=== PATIENT | male | born 1940 | race Caucasian/White ===

== ENCOUNTER 2018-11-21 15:46 | Emergency (ER) | payer MEDICARE, OTHER, SELFPAY ==
[2018-11-21 15:50] VITALS: BP 133/65; PULSE 71; RESP 15; TEMP 36.7; O2SAT 98; BMI 22.8
[2018-11-21 18:22] VITALS: BP 145/63; PULSE 63; RESP 19; O2SAT 100
--- NOTE | 2018-11-21 18:42 | DI.CT.S_ITS ---
PROCEDURE: CT HEAD/BRAIN WO CON INDICATIONS: Right arm weakness started today TECHNIQUE: Noncontrast 4.5 mm thick angled axial sections acquired from the foramen magnum to the vertex, with coronal and sagittal reformats. For radiation dose reduction, the following was used: automated exposure control, adjustment of mA and/or kV according to patient size. COMPARISON: None. FINDINGS: Image quality: Excellent. CSF spaces: Basal cisterns are patent. No extra-axial fluid collections. The ventricles are symmetric in size and shape. Brain: No intracranial bleeds or masses. There is cerebral volume loss for age, with resultant ventricular and sulcal prominence. There are periventricular and deep white matter chronic small vessel ischemic changes. There is intracranial internal carotid artery atherosclerosis. Skull and face: Calvarium and visualized facial bones appear intact, without suspicious lesions. Sinuses: Visualized sinuses and mastoids are clear. IMPRESSION: 1. No acute process. 2. Volume loss and small vessel ischemic disease. Dictated by: Diamond De Anda M.D. on 11/21/2018 at 19:35 Approved by: Diamond De Anda M.D. on 11/21/2018 at 19:36
[2018-11-21 19:08] LABS: Add Manual Diff / Slide Review NO; Basophils Absolute Auto 0 /uL (0-100); Basophils Percent Auto 0.7 % (0-2); Eosinophils Absolute Auto 100 /uL (0-450); Eosinophils Percent Auto 2.7 % (2-4); Hematocrit 39.8 % (41-53); Hemoglobin 13.7 g/dL (13.5-17.5); Lymphocytes Absolute Auto 1600 /uL (1100-4500); Lymphocytes Percent Auto 30.9 % (25-40); Mean Corpuscular HGB Conc 34.3 % (30-36); Mean Corpuscular Hemoglobin 32.5 PG (26-34); Monocytes Absolute Auto 500 /uL (0-900); Monocytes Percent Auto 9.4 % (3-14); Neutrophils Absolute Auto 2800 /uL (1500-7000); Neutrophils Percent Auto 56.3 % (50-75); Platelet Count 137 X10^3/uL (150-400)
--- NOTE | 2018-11-21 19:21 | PC.NURSE ---
pt developed a right wrist palsy this am. reports that he had no other neuro deficits. right wrist is completely flaccid. good pulses. reports his 4 fingers don't work.
[2018-11-21 19:22] LABS: Blood Urea Nitrogen 15 mg/dL (9-20); Calcium 10.5 mg/dL (8.4-10.2); Carbon Dioxide 30 mmol/L (22-32); Chloride 104 mmol/L (98-107); Estimated Glomerular Filt Rate > 60.0 mL/min (>60); Glucose 92 mg/dL (80-110); HEMOLYSIS < 15 (0-50); Potassium 3.9 mmol/L (3.4-5.1); Sodium 139 mmol/L (137-145)
--- NOTE | 2018-11-21 19:25 | DI.CT.S_ITS ---
PROCEDURE: CT ANGIO HEAD AND NECK INDICATIONS: stroke symptoms, RUE weakness TECHNIQUE: Pre-contrast 4.5 mm thick sections acquired from the foramen magnum to the vertex. After the administration of intravenous contrast, 1 mm thick sections acquired from the aortic arch through the [place]. Post-contrast 4.5 mm thick sections then re-acquired from the foramen magnum to the vertex. 3-dimensional haerolr-wlbfrpmfc-zjizfzuein (MIP) and/or volume rendering reformats were acquired of the central intracranial vasculature and neck separately. COMPARISON: [facility], CT, CT HEAD/BRAIN WO CON, 11/21/2018, 19:24. [facility], [place], CAROTID ARTERY DOPPLER BILAT, 05/03/2016, 15:28. FINDINGS: Image quality: Degraded by dental artifact. BRAIN: CSF spaces: Ventricles are normal in size and shape. Basal cisterns are patent. No extra-axial fluid collections. Brain: No midline shift. No intracranial bleeds or masses. Lopez-white matter interface appears intact. Skull and face: Calvarium and facial bones appear intact, without suspicious lesions. Orbits appear normal. Sinuses: Sinuses and mastoids are clear. HEAD CT ANGIOGRAPHY: Anterior circulation: Intracranial internal carotid arteries are normal in size and flow. The flow within the paired anterior cerebral arteries is normal and symmetric. The flow within the middle cerebral arteries is normal and symmetric. The anterior communicating artery is seen. No aneurysms are seen. Posterior circulation: Visualized portions of the vertebral arteries demonstrate normal caliber, and join to form a normal appearing basilar artery. Flow within the posterior cerebral arteries is normal and symmetric. No aneurysms are seen. NECK CT ANGIOGRAPHY: Carotid system: The great vessels demonstrate a conventional anatomy as they arise from the aortic arch. The origins of the common carotid arteries appear patent. The common carotid arteries demonstrate normal caliber and courses. The bifurcation regions are both widely patent. Mild femoral to 10% origin stenosis of the right internal carotid artery. Mild pleural thickening present origin stenosis of the left internal carotid artery. The internal carotid arteries demonstrate otherwise normal calibers and courses. Posterior circulation: Moderate right and high-grade left vertebral artery origin stenoses are present. The more superior extracranial portions of both vertebral arteries also demonstrate normal courses and calibers. They join to form a normal appearing basilar artery. Soft tissues: Visualized neck soft tissues demonstrate no suspicious abnormalities. Bones: No suspicious bony lesions. Visualized cervical spine appears normally aligned. IMPRESSION: 1. No acute process involving the arterial tree of the head and neck. 2. Left greater than right vertebral artery origin stenoses. 3. Mild bilateral internal carotid artery origin stenoses. Any quantitative measurements of stenosis were performed using NASCET criteria. Dictated by: Diamond De Anda M.D. on 11/21/2018 at 20:04 Approved by: Diamond De Anda M.D. on 11/21/2018 at 20:09
[2018-11-21 19:35] VITALS: BP 148/63; PULSE 65; RESP 14; O2SAT 100
[2018-11-21 20:07] VITALS: BP 145/63; PULSE 84; RESP 14
--- NOTE | 2018-11-21 20:24 | ED_ITS ---
HPI - Neuro Symptoms/Deficit General Chief Complaint: Neuro Symptoms/Deficit Stated Complaint: POSSIBLE STROKE NO MOBILITY TO RT ARM Time Seen by Provider: 11/21/18 18:30 Source: patient and family Mode of arrival: ambulatory Limitations: no limitations History of Present Illness HPI Narrative: 78-year-old male former smoker with hypertension, hyperlipidemia and early stage dementia presents with his from [facility] 24 hour care. She states that today she noticed that he had no use of his right hand that appears floppy. Has no other stroke-like symptoms such as blurred vision, trouble with speech or trouble ambulating. She states he was in his normal state of health until this morning. She noticed there is a problem when she had asked him to put some shoes on and he came out wearing sandals despite the fact that it was raining. There is no reported injury or pain. It is unclear if he maybe slept on it awkwardly. Onset (ago): hour(s) Timing confirmed by: spouse Location: right arm History of same: No Severity: mild Quality: weak and numb Relieving factors: none Exacerbating factors: none Context: other On Anticoagulants: No Associated symptoms: denies other symptoms Treatments Prior to Arrival: none Related Data Home Medications Medication Instructions Recorded Confirmed aspirin 81 mg PO BID #0 02/09/11 01/13/18 rosuvastatin [Crestor] 40 mg PO HS #0 02/09/11 01/13/18 cholecalciferol (vitamin D3) 1,000 unit PO QDAY #0 02/26/12 01/13/18 [Vitamin D3] polyethylene glycol 3350 [Miralax] 17 gm PO QDAYP PRN #0 12/21/16 01/13/18 Previous Rx's Medication Instructions Recorded gabapentin [Neurontin] 600 mg PO BID #180 tab 09/17/17 galantamine [Razadyne ER] 16 mg PO HS #90 cap 09/17/17 memantine 10 mg PO BID #180 tab 09/17/17 Allergies Allergy/AdvReac Type Severity Reaction Status Date / Time Penicillins [PENICILLINS] Allergy Severe SWELLING Unverified 10/09/17 11:57 IN THROAT, AXILLA, GROIN Review of Systems Constitutional Denies chills, Denies fever(s), Denies lethargy and Denies weakness Eyes Denies change in vision, Denies eye discharge, Denies irritation and Denies loss of vision ENT Ears, Nose, Mouth, and Throat: Denies change in voice, Denies neck pain and Denies sore throat Cardiovascular Denies chest pain, Denies irregular heart rhythm, Denies lightheadedness, Denies palpitations, Denies dyspnea, Denies dyspnea on exertion and Denies orthopnea Respiratory Denies cough, Denies dyspnea, Denies dyspnea on exertion and Denies wheezing Gastrointestinal Gastrointestinal: Denies abdominal pain, Denies change in bowel habits, Denies diarrhea, Denies nausea and Denies vomiting Genitourinary Denies hematuria, Denies flank pain, Denies urinary incontinence and Denies urinary urgency Musculoskeletal Denies neck pain Integumentary/Breasts Denies pruritus, Denies erythema, Denies rash and Denies wounds Neurologic Denies confusion, Reports focal weakness, Denies loss of vision and Denies weakness Psychiatric Denies anxiety, Denies confusion, Denies depression, Denies homicidal ideation and Denies suicidal ideation Endocrine Denies palpitations Hematologic/Lymphatic Denies easy bruising Allergic/Immunologic Denies wheezing [facility] Social History Smoking Status: Never smoker Social History Smoking Status: Never smoker Exam Narrative Exam Narrative: GENERAL: 78-year-old male appears younger than stated age, in no obvious distress, pleasantly confused and at baseline per HEAD: Atraumatic. Normocephalic. No temporal or scalp tenderness. EYES: Pupils equal round and reactive. Extraocular motions intact. No scleral icterus. No injection or drainage. ENT: Nose without bleeding, purulent drainage or septal hematoma. Throat without erythema, tonsillar hypertrophy or exudate. Uvula midline. Airway patent. NECK: Trachea midline. No JVD or lymphadenopathy. Supple, nontender, no meningeal signs. CARDIOVASCULAR: Regular rate and rhythm without murmurs, gallops, or rubs. RESPIRATORY: Clear to auscultation. Breath sounds equal bilaterally. No wheezes, rales, or rhonchi. GASTROINTESTINAL: Abdomen soft, non-tender, nondistended. No hepato- splenomegaly, or palpable masses. No guarding. EXTREMITIES: Obvious right upper extremity wrist drop. Patient complains of numbness on the dorsum of his right hand, particularly on dorsum of thumb and 1st web space. He is able to flex fingers and overlock sleeve setter but spreading fingers wide is difficult. Full strength at shoulder and elbow No clubbing, cyanosis, or edema. No joint tenderness, effusion, or edema noted. BACK: Nontender without deformity or crepitance. No flank tenderness. NEURO: AOx3. SKIN: No rash or erythema. Initial Vital Signs Initial Vital Signs: Vital Signs Temperature 98.1 F 11/21/18 15:50 Pulse Rate 71 11/21/18 15:50 Respiratory Rate 15 11/21/18 15:50 Blood Pressure 133/65 11/21/18 15:50 Pulse Oximetry 98 11/21/18 15:50 Procedures Orthopedic Splinting/Casting Injury #1: Side: right Upper Extremity Injury Location: wrist Upper Extremity Immobilizer: wrist splint Post splinting neuro exam: intact Post splinting vascular exam: intact Placed by: Nursing Scores NIH Stroke Scale Level of Conciousness: Alert, keenly responsive Ask month/age: Answers both questions correctly. Open/close eyes, close hand: Performs both tasks correctly Best gaze horizontal: Normal Visual andres: No visual loss Facial palsy: Normal symetrical movement Left arm drift: No drift for full 10 sec Right arm drift: No drift for full 10 sec Left leg drift: No drift for full 10 sec Right leg drift: No drift for full 10 sec Limb ataxia: Absent Sensory on face/arms/legs: Mild to moderate sensory loss, can tell touch Best language: No aphasia, normal Dysarthria: Normal Extinction or inattention: No abnormality Total NIH Stroke scale score: 1 Course Orders Ordered: ED Orders 11/21/18 18:42 CT head/brain wo con Stat EKG-12 Lead Stat 11/21/18 19:01 Basic Metabolic Panel Stat Complete Blood Count AUTO DIFF Stat 11/21/18 19:25 CT angio head and neck Stat Consultations Consultation #1: call to customer retention specialist orthopedics to discuss findings, he agrees that this sounds like a focal extremity problem and recommends splinting and follow up Consultation #2: call to [place] [facility]. After discussion of case, imaging, and exam they agree that this is likely an isolated palsy and that follow up with neuro in 4 weeks is appropriate Vital Signs - 8 hr 11/21/18 18:22 11/21/18 19:35 11/21/18 20:07 Pulse Rate 63 65 84 Respiratory Rate 19 14 14 Blood Pressure [Right Arm] 145/63 H 148/63 H 145/63 H Pulse Oximetry 100 100 11/21/18 20:30 Pulse Rate 62 Respiratory Rate 15 Blood Pressure [Right Arm] 131/56 L Pulse Oximetry 98 MDM - Neuro Symptoms/Deficit Lab Data Result diagrams: 11/21/18 19:01 11/21/18 19:01 Lab Results 11/21/18 11/21/18 Range/Units 19:01 19:01 WBC 5.0 (4.5-11.0) X10^3/uL RBC 4.20 L (4.5-5.9) X10^6/uL Hgb 13.7 (13.5-17.5) g/dL Hct 39.8 L (41-53) % MCV 95.0 (80-100) fL MCH 32.5 (26-34) PG MCHC 34.3 (30-36) % RDW 14.0 (11.6-14.8) % Plt Count 137 L (150-400) X10^3/uL Neut % (Auto) 56.3 (50-75) % Lymph % (Auto) 30.9 (25-40) % [place] % (Auto) 9.4 (3-14) % Eos % (Auto) 2.7 (2-4) % Baso % (Auto) 0.7 (0-2) % Neut # (Auto) 2800 (7296-0898) /uL Lymph # (Auto) 1600 (7895-3510) /uL [place] # (Auto) 500 (0-900) /uL Eos # (Auto) 100 (0-450) /uL Baso # (Auto) 0 (0-100) /uL Sodium 139 (137-145) mmol/L Potassium 3.9 (3.4-5.1) mmol/L Chloride 104 (98-107) mmol/L Carbon Dioxide 30 (22-32) mmol/L BUN 15 (9-20) mg/dL Creatinine 1.00 (0.66-1.25) mg/dL Estimated GFR > 60.0 (>60) mL/min BUN/Creatinine Ratio 15.0 (6-22) Glucose 92 (80-110) mg/dL Calcium 10.5 H (8.4-10.2) mg/dL Imaging Data CT scan - head: Radiologist's impression: [address] [place] [address] CT Scan Report Signed Patient: Kyle Jones FMR#: [id number] : 8Acct:[id number] Age/Sex: 78 / MDate of Service: 11/21/18 Loc: ED Accession Number: [id number] Procedure: CT angio head and neck Ordering Provider: Ryan Peters D.O. PROCEDURE: CT ANGIO HEAD AND NECK INDICATIONS: stroke symptoms, RUE weakness TECHNIQUE: Pre-contrast 4.5 mm thick sections acquired from the foramen magnum to the vertex. After the administration of intravenous contrast, 1 mm thick sections acquired from the aortic arch through the [place] of [place]. Post-contrast 4.5 mm thick sections then re- acquired from the foramen magnum to the vertex. 3-dimensional oabhfhl-hsmzzoyac-ccwhuysgrx (MIP) and/or volume rendering reformats were acquired of the central intracranial vasculature and neck separately. COMPARISON: [facility], CT, CT HEAD/BRAIN WO CON, 11/21/2018, 19:24. [facility], [place], CAROTID ARTERY DOPPLER BILAT, 05/03/2016, 15:28. FINDINGS: Image quality: Degraded by dental artifact. BRAIN: CSF spaces: Ventricles are normal in size and shape. Basal cisterns are patent. No extra-axial fluid collections. Brain: No midline shift. No intracranial bleeds or masses. Lopez-white matter interface appears intact. Skull and face: Calvarium and facial bones appear intact, without suspicious lesions. Orbits appear normal. Sinuses: Sinuses and mastoids are clear. HEAD CT ANGIOGRAPHY: Anterior circulation: Intracranial internal carotid arteries are normal in size and flow. The flow within the paired anterior cerebral arteries is normal and symmetric. The flow within the middle cerebral arteries is normal and symmetric. The anterior communicating artery is seen. No aneurysms are seen. Posterior circulation: Visualized portions of the vertebral arteries demonstrate normal caliber, and join to form a normal appearing basilar artery. Flow within the posterior cerebral arteries is normal and symmetric. No aneurysms are seen. NECK CT ANGIOGRAPHY: Carotid system: The great vessels demonstrate a conventional anatomy as they arise from the aortic arch. The origins of the common carotid arteries appear patent. The common carotid arteries demonstrate normal caliber and courses. The bifurcation regions are both widely patent. Mild femoral to 10% origin stenosis of the right internal carotid artery. Mild pleural thickening present origin stenosis of the left internal carotid artery. The internal carotid arteries demonstrate otherwise normal calibers and courses. Posterior circulation: Moderate right and high-grade left vertebral artery alicia gin stenoses are present. The more superior extracranial portions of both vertebral arteries also demonstrate normal courses and calibers. They join to form a normal appearing basilar artery. Soft tissues: Visualized neck soft tissues demonstrate no suspicious abnormalities. Bones: No suspicious bony lesions. Visualized cervical spine appears normally aligned. IMPRESSION: 1. No acute process involving the arterial tree of the head and neck. 2. Left greater than right vertebral artery origin stenoses. 3. Mild bilateral internal carotid artery origin stenoses. Any quantitative measurements of stenosis were performed using NASCET criteria. Dictated by: Diamond De Anda M.D. on 11/21/2018 at 20:04 Approved by: Diamond De Anda M.D. on 11/21/2018 at 20:09 [facility] Narrative Medical decision making narrative: Multiple etiologies for patient's symptoms considered including: [Central problem such as stroke versus postop isolated radial nerve or brachial plexus palsy] Findings and discharge diagnosis discussed with patient/family followed by verbalization of understanding Return precautions discussed with patient/family whom verbalize understanding. Discharge Plan Departure Patient Disposition: Home Clinical Impression: Acute radial nerve palsy Qualifiers: Laterality: right Qualified Code(s): G56.31 - Lesion of radial nerve, right upper limb Discharge Date/Time: 11/21/18 21:00 Interventions: ED Discharge Assessment Last Done: 11/21/18 21:00 Instructions: Peripheral Neuropathy Activity Restrictions/Additional Instructions: *You have been diagnosed with [acute right radial nerve palsy] *What to do: * Continue to take medications as directed *Follow up with your primary care provider in 2-3 days, call for an appointment. Let them know you were seen in the Emergency Department and that we ask that you be seen in follow up *Return to ER if you should have any new, worsening or concerning symptoms Prescriptions: No Action rosuvastatin [Crestor] 40 MG tablet 40 mg PO HS Qty: 0 RF: 0 aspirin 81 MG tablet,delayed release (DR/EC) 81 mg PO BID Qty: 0 RF: 0 cholecalciferol (vitamin D3) [Vitamin D3] 1,000 UNIT tablet 1,000 unit PO QDAY Qty: 0 RF: 0 polyethylene glycol 3350 [Miralax] 119 GM powder 17 gm PO QDAYP PRNQty: 0 RF: 0 gabapentin [Neurontin] 600 MG tablet 600 mg PO BID Qty: 180 RF: 3 memantine 10 MG tablet 10 mg PO BID Qty: 180 RF: 3 galantamine [Razadyne ER] 16 MG capsule,ext rel. pellets 24 hr 16 mg PO HS Qty: 90 RF: 2 Referrals: Olga Mclean MD [Non-Staff] - Chester Tatum MD [Primary Care Provider] - Rahul Garcias MD [Physician] -
[2018-11-21 20:30] VITALS: BP 131/56; PULSE 62; RESP 15; O2SAT 98
== END 2018-11-21 21:00 | disposition home or self-care (01) ==
PROVIDERS: Emergency Provider Emergency Medicine; Family Provider Family Medicine; PCP Family Medicine
DX: G56.31 Lesion of radial nerve, right upper limb (principal); R53.1 Weakness
CPT/HCPCS: 29260; 36591; 70450; 70496; 70498; 80048; 85025; 93005; 93010; 99284; 99285; Q9967

== ENCOUNTER 2018-12-05 19:09 | Emergency (ER) | payer MEDICARE, OTHER, SELFPAY ==
[2018-12-05 19:05] VITALS: BP 166/65; PULSE 98; RESP 11; TEMP 36.7; O2SAT 99
--- NOTE | 2018-12-05 19:10 | PC.NURSE ---
Pt obtunded, responsive to deep painful stimuli done by Dr. Montes at bedside minimal movement and no response to ammonia inhalant. NIH Stroke scale unattainable due to pt medical and mental condition per Dr. Montes.
--- NOTE | 2018-12-05 19:10 | ED.AMS ---
HPI - Altered Mental Status General Chief Complaint: Neuro Symptoms/Deficit Stated Complaint: Altered mental status Time Seen by Provider: 12/05/18 19:10 Source: EMS Mode of arrival: EMS Limitations: altered mental status History of Present Illness HPI narrative: Patient is an 78-year-old male. All of the HPI was provided by EMS. It was reported that last evening the patient received Seroquel for the 1st time. Is reported the patient also has a history of dementia. EMS reports from the patient's that his baseline is that he is able to walk and talk and take care of himself. EMS states that according to his he has been more tired throughout today. Apparently a spent most of the time in bed. EMS states that the walked into his room to tell him that dinner was ready. They stated that he walked out of his room dressed and then ?fell to his knees ?this is when the called 911. When they arrived the patient has been mostly unresponsive however he did respond slightly to noxious stimuli. His BG L was 80. Received 2 mg of Narcan by EMS without any improvement. Patient is maintaining his airway. Related Data Home Medications Medication Instructions Recorded Confirmed aspirin 81 mg PO BID #0 02/09/11 01/13/18 rosuvastatin [Crestor] 40 mg PO HS #0 02/09/11 01/13/18 cholecalciferol (vitamin D3) 1,000 unit PO QDAY #0 02/26/12 01/13/18 [Vitamin D3] polyethylene glycol 3350 [Miralax] 17 gm PO QDAYP PRN #0 12/21/16 01/13/18 Previous Rx's Medication Instructions Recorded gabapentin [Neurontin] 600 mg PO BID #180 tab 09/17/17 galantamine [Razadyne ER] 16 mg PO HS #90 cap 09/17/17 memantine 10 mg PO BID #180 tab 09/17/17 Allergies Allergy/AdvReac Type Severity Reaction Status Date / Time Penicillins [PENICILLINS] Allergy Severe SWELLING Unverified 10/09/17 11:57 IN THROAT, AXILLA, GROIN Review of Systems Review of Systems ROS Unobtainable: Unobtainable due to mental condition Exam Initial Vital Signs Initial Vital Signs: Vital Signs Temperature 98.0 F 12/05/18 19:05 Pulse Rate 98 H 12/05/18 19:05 Respiratory Rate 11 L 12/05/18 19:05 Blood Pressure 166/65 H 12/05/18 19:05 Pulse Oximetry 99 12/05/18 19:05 Const General: comfortable, well developed and well groomed Nutritional Appearance: average body habitus Orientation: obtunded Limitations: altered mental status [facility] Head: normal to inspection and normocephalic Nose: external nose normal Mouth: oral mucosae normal Eyes Other: Pupils 3 mm equal reactive bilaterally however somewhat sluggish Chest Chest: normal inspection of the chest Resp Effort & Inspection: normal respiratory effort Auscultation: clear to auscultation bilaterally Cardio Rate: regular rate Rhythm: regular rhythm Pulses: radial pulses present GI Inspection: non-distended Palpation: soft and No firm Skin Other: Well-healed midline anterior chest surgical scar. Otherwise no other lesions noted Neuro Other: Patient only responsive to noxious stimuli. He did withdrawal to pain stimuli to his right upper extremity. Did not move with stimuli to his left upper extremity. Has an upgoing Babinski's bilateral lower extremities. Did not move any of his extremities to command. Does not follow any commands. Extrem General: capillary refill normal Other: No gross deformities Psych Appearance: grossly normal and well kempt Scores GCS Radnor coma scale eye opening: None Shayy coma scale verbal response: None Shayy coma scale motor response: Normal flexion Radnor coma scale total score: 6 Course Orders Ordered: ED Orders 12/05/18 19:00 Complete Blood Count AUTO DIFF Stat Comprehensive Metabolic Panel Stat Ethanol (ETOH) Stat Lipase Stat Partial Thromboplastin Time Stat Prothrombin Time INR Stat Thyroid Stimulating Hormone Stat Troponin I Stat 12/05/18 19:17 CT head/brain wo con Stat XR chest 1V Stat 12/05/18 19:18 EKG-12 Lead Stat 12/05/18 19:41 CT angio head and neck Stat 12/05/18 20:00 Ammonia (NH3) Stat 12/05/18 20:30 Urine Drug Screen, Rapid Stat Discontinued Medications Sodium Chloride (Normal Saline 0.9%) 1,000 mls @ 1,000 mls/hr IV BOLUS ONE Stop: 12/05/18 20:15 Last Infusion: 12/05/18 21:35 Dose: 1,000 mls/hr Admin: 12/05/18 20:00 Dose: 1,000 mls/hr Vital Signs - 8 hr 12/05/18 19:05 12/05/18 20:16 12/05/18 21:59 Temperature 98.0 F Pulse Rate 98 H 56 L 62 Respiratory Rate 11 L 13 15 Blood Pressure 166/65 H 146/60 H Blood Pressure [Left Arm] 160/63 H Pulse Oximetry 99 97 100 MDM - Altered Mental Status Lab Data Attestation: I reviewed the patient's lab results. Result diagrams: 12/05/18 19:00 12/05/18 19:00 Lab Results 12/05/18 12/05/18 12/05/18 Range/Units 19:00 19:00 19:00 WBC 5.3 (4.5-11.0) X10^3/uL RBC 4.21 L (4.5-5.9) X10^6/uL Hgb 13.7 (13.5-17.5) g/dL Hct 40.6 L (41-53) % MCV 96.4 (80-100) fL MCH 32.7 (26-34) PG MCHC 33.9 (30-36) % RDW 13.8 (11.6-14.8) % Plt Count 132 L (150-400) X10^3/uL Neut % (Auto) 57.6 (50-75) % Lymph % (Auto) 27.1 (25-40) % [place] % (Auto) 11.6 (3-14) % Eos % (Auto) 3.2 (2-4) % Baso % (Auto) 0.5 (0-2) % Neut # (Auto) 3100 (3826-2329) /uL Lymph # (Auto) 1400 (3844-2568) /uL [place] # (Auto) 600 (0-900) /uL Eos # (Auto) 200 (0-450) /uL Baso # (Auto) 0 (0-100) /uL PT 11.8 (10.1-12.7) SECONDS INR 1.0 (0.9-1.3) APTT 28 (26.4-36.2) SECONDS Sodium 140 (137-145) mmol/L Potassium 3.9 (3.4-5.1) mmol/L Chloride 105 (98-107) mmol/L Carbon Dioxide 31 (22-32) mmol/L BUN 15 (9-20) mg/dL Creatinine 0.90 (0.66-1.25) mg/dL Estimated GFR > 60.0 (>60) mL/min BUN/Creatinine Ratio 16.7 (6-22) Glucose 92 (80-110) mg/dL Calcium 10.4 H (8.4-10.2) mg/dL Total Bilirubin 0.6 (0.2-1.3) mg/dL AST 41 (17-59) IU/L ALT 28 (21-72) IU/L Alkaline Phosphatase 65 (38-126) U/L Ammonia (9-30) umol/L Troponin I < 0.012 (0.01-0.034) ng/mL Total Protein 6.2 L (6.3-8.2) g/dL Albumin 3.8 (3.5-5.0) g/dL Globulin 2.4 (1.7-4.1) g/dL Albumin/Globulin Ratio 1.6 (1.0-2.8) Lipase 70 (23-300) U/L TSH (0.47-4.68) uIU/mL Urine Opiates Screen (Negative) Ur Oxycodone Screen (Negative) Urine Methadone Screen (Negative) Ur Barbiturates Screen (Negative) U Tricyclic Antidepress (Negative) Ur Phencyclidine Scrn (Negative) Ur Amphetamines Screen (Negative) U Methamphetamines Scrn (Negative) Ur MDMA Scrn (Ecstasy) (Negative) U Benzodiazepines Scrn (Negative) Urine Cocaine Screen (Negative) U Marijuana (THC) Screen (Negative) Ethyl Alcohol < 10 mg/dL 12/05/18 12/05/18 12/05/18 Range/Units 19:00 20:00 20:30 WBC (4.5-11.0) X10^3/uL RBC (4.5-5.9) X10^6/uL Hgb (13.5-17.5) g/dL Hct (41-53) % MCV (80-100) fL MCH (26-34) PG MCHC (30-36) % RDW (11.6-14.8) % Plt Count (150-400) X10^3/uL Neut % (Auto) (50-75) % Lymph % (Auto) (25-40) % [place] % (Auto) (3-14) % Eos % (Auto) (2-4) % Baso % (Auto) (0-2) % Neut # (Auto) (5266-7180) /uL Lymph # (Auto) (5480-1394) /uL [place] # (Auto) (0-900) /uL Eos # (Auto) (0-450) /uL Baso # (Auto) (0-100) /uL PT (10.1-12.7) SECONDS INR (0.9-1.3) APTT (26.4-36.2) SECONDS Sodium (137-145) mmol/L Potassium (3.4-5.1) mmol/L Chloride (98-107) mmol/L Carbon Dioxide (22-32) mmol/L BUN (9-20) mg/dL Creatinine (0.66-1.25) mg/dL Estimated GFR (>60) mL/min BUN/Creatinine Ratio (6-22) Glucose (80-110) mg/dL Calcium (8.4-10.2) mg/dL Total Bilirubin (0.2-1.3) mg/dL AST (17-59) IU/L ALT (21-72) IU/L Alkaline Phosphatase (38-126) U/L Ammonia 10.0 (9-30) umol/L Troponin I (0.01-0.034) ng/mL Total Protein (6.3-8.2) g/dL Albumin (3.5-5.0) g/dL Globulin (1.7-4.1) g/dL Albumin/Globulin Ratio (1.0-2.8) Lipase (23-300) U/L TSH 2.38 (0.47-4.68) uIU/mL Urine Opiates Screen Negative (Negative) Ur Oxycodone Screen Negative (Negative) Urine Methadone Screen Negative (Negative) Ur Barbiturates Screen Negative (Negative) U Tricyclic Antidepress Negative (Negative) Ur Phencyclidine Scrn Negative (Negative) Ur Amphetamines Screen Negative (Negative) U Methamphetamines Scrn Negative (Negative) Ur MDMA Scrn (Ecstasy) Negative (Negative) U Benzodiazepines Scrn Negative (Negative) Urine Cocaine Screen Negative (Negative) U Marijuana (THC) Screen Negative (Negative) Ethyl Alcohol mg/dL Point of Care Testing Glucose POC [address] scan - head: Radiologist's impression: [address] [address] [address] Scan Report Signed Patient: Kyle Jones FMR#: [id number] : 8Acct:[id number] Age/Sex: 78 / MDate of Service: 12/05/18 Loc: ED Accession Number: [id number] Procedure: CT head/brain wo con Ordering Provider: Chester Montes D.O. PROCEDURE: CT HEAD/BRAIN WO CON INDICATIONS: Code stroke TECHNIQUE: Noncontrast 4.5 mm thick angled axial sections acquired from the foramen magnum to the vertex, with coronal and sagittal reformats. For radiation dose reduction, the following was used: automated exposure control, adjustment of mA and/or kV according to patient size. COMPARISON: [facility], CT, CT HEAD/BRAIN WO CON, 11/21/2018, 19:24. FINDINGS: Image quality: Excellent. CSF spaces: Basal cisterns are patent. No extra-axial fluid collections. The ventricles are symmetric in size and shape. Brain: No intracranial bleeds or masses. There is moderate cerebral volume loss for age, with resultant ventricular and sulcal prominence. There are moderate periventricular and deep white matter chronic small vessel ischemic changes. There is intracranial internal carotid artery atherosclerosis. Skull and face: Calvarium and visualized facial bones appear intact, without suspicious lesions. Sinuses: Visualized sinuses and mastoids are clear. IMPRESSION: 1. No acute intracranial abnormalities. 2. Cerebral volume loss and chronic microvascular ischemic changes. The result was discussed with Dr. Montes on 12/05/2018 at 1942 hours. Dictated by: Brody Ryan M.D. on 12/05/2018 at 19:41 Approved by: Brody Ryan M.D. on 12/05/2018 at 19:4 Chest x-ray: Radiologist's impression: [address] [address] XRay Report Signed Patient: Kyle Jones FMR#: [id number] : 8Acct:[id number] Age/Sex: 78 / MDate of Service: 12/05/18 Loc: ED Accession Number: [id number] Procedure: XR chest 1V Ordering Provider: Chester Montes D.O. PROCEDURE: XR CHEST 1V INDICATIONS: Code stroke TECHNIQUE: One view of the chest was acquired. COMPARISON: [facility], CR, CHEST 1 VIEW, 06/10/2017, 9:47. FINDINGS: Surgical changes and devices: Sternotomy and CABG. Lungs and pleura: Lungs are clear. No pleural effusions or pneumothorax. Mediastinum: Mediastinal contours appear normal. Heart size is normal. Bones and chest wall: No suspicious bony lesions. Overlying soft tissues appear unremarkable. IMPRESSION: No acute cardiopulmonary disease. Dictated by: Brody Ryan M.D. on 12/05/2018 at 20:38 Approved by: Brody Ryan M.D. on 12/05/2018 at 20:39 CTA head and neck: Radiologist's impression: [place] [address] CT Scan Report Signed Patient: Kyle Jones FMR#: [id number] : 8Acct:[id number] Age/Sex: 78 / MDate of Service: 12/05/18 Loc: ED Accession Number: [id number] Procedure: CT angio head and neck Ordering Provider: Chester Montes D.O. PROCEDURE: CT ANGIO HEAD AND NECK INDICATIONS: Possible stroke TECHNIQUE: Pre-contrast 4.5 mm thick sections acquired from the foramen magnum to the vertex. After the administration of intravenous contrast, 1 mm thick sections acquired from the aortic arch through the [place]. Post-contrast 4.5 mm thick sections then re-acquired from the foramen magnum to the vertex. 3-dimensional htvlpof-joozefhun-xbhcnzifkj (MIP) and/or volume rendering reformats were acquired of the central intracranial vasculature and neck separately. COMPARISON: [facility], CT, CT ANGIO HEAD AND NECK, 11/21/2018, 19:26. FINDINGS: Image quality: Excellent. BRAIN: CSF spaces: Ventricles are normal in size and shape. Basal cisterns are patent. No extra-axial fluid collections. Brain: There is moderate cerebral volume loss. Moderate periventricular white matter chronic small vessel ischemic changes are present. No midline shift. No intracranial bleeds or masses. Lopez-white matter interface appears intact. Skull and face: Calvarium and facial bones appear intact, without suspicious lesions. Orbits appear normal. Sinuses: Sinuses and mastoids are clear. HEAD CT ANGIOGRAPHY: Anterior circulation: Intracranial internal carotid arteries are normal in size and flow. The flow within the paired anterior cerebral arteries is normal and symmetric. The flow within the middle cerebral arteries is normal and symmetric. The anterior communicating artery is seen. No aneurysms are seen. Posterior circulation: Visualized portions of the vertebral arteries demonstrate normal caliber, and join to form a normal appearing basilar artery. Flow within the posterior cerebral arteries is normal and symmetric. No aneurysms are seen. NECK CT ANGIOGRAPHY: Carotid system: The great vessels demonstrate a conventional anatomy as they arise from the aortic arch. The origins of the common carotid arteries appear patent. The common carotid arteries demonstrate normal caliber and courses. The bifurcation regions are both widely patent. The internal carotid arteries demonstrate normal calibers and courses. Posterior circulation: The origins of the vertebral arteries both appear widely patent. The more superior extracranial portions of both vertebral arteries also demonstrate normal courses and calibers. They join to form a normal appearing basilar artery. Soft tissues: Visualized neck soft tissues demonstrate no suspicious abnormalities. There is an aortic valve prosthesis. Bones: Scoliosis and degenerative changes in cervical spine. There is a sternotomy. No suspicious bony lesions. Visualized cervical spine appears normally aligned. IMPRESSION: 1. No acute intracranial abnormalities. 2. No high-grade stenosis or occlusion in anterior circulations. 3. No high-grade stenosis or occlusion in posterior circulations. 4. No high-grade stenoses or occlusion of the cervical carotid arteries bilaterally. 5. No high-grade stenoses or occlusion in cervical vertebral arteries bilaterally. Any quantitative measurements of stenosis were performed using NASCET criteria. Dictated by: Brody Ryan M.D. on 12/05/2018 at 21:10 Approved by: Brody Ryan M.D. on 12/05/2018 at 21:18 ECG Data Attestation: I personally reviewed and interpreted this ECG as follows: Prior ECG tracings: not available for review Interpretation: Sinus bradycardia Ventricular rate of 53 LVH Normal axis No ST T wave changes MDM Narrative Medical decision making narrative: Patient's workup here in the emergency department was negative for stroke. His did arrive and I did spend some time talking with her. During his observation here in the emergency department while we are waiting for his CTA to results patient regained consciousness. He eventually was back to ?normal? per his . No signs of other trauma. Did discuss the case with Dr. Tatum who is his primary provider. Dr. Tatum did agree to admit the patient however there was concern about placing the patient in a unfamiliar environment overnight. I did discuss this with the patient's who agreed that this would probably not be the best course of action. She was okay with taking the patient home. I do suspect that his symptoms were the result of the Seroquel he took last evening with his underlying dementia and other medical issues. Low suspicion for CVA or TIA. Hold on further workup for now. The patient's was given strict return precautions. She expressed understanding and agreement with plan. Discharge Plan Departure Patient Disposition: Home Clinical Impression: Altered mental status Qualifiers: Altered mental status type: unspecified Qualified Code(s): R41.82 - Altered mental status, unspecified Medication reaction Qualifiers: Encounter type: initial encounter Qualified Code(s): T50.905A - Adverse effect of unspecified drugs, medicaments and biological substances, initial encounter Discharge Date/Time: 12/05/18 21:59 Interventions: ED Discharge Assessment Last Done: 12/05/18 21:59 Instructions: DI for Altered Mental Status Activity Restrictions/Additional Instructions: Recommend that you stop the Seroquel. He can take the rest of his medications as directed. He can eat and sleep like normal. On Saturday contact Dr. Tatum for a follow-up. Return to the emergency department for any new or worsening symptoms Prescriptions: No Action rosuvastatin [Crestor] 40 MG tablet 40 mg PO HS Qty: 0 RF: 0 aspirin 81 MG tablet,delayed release (DR/EC) 81 mg PO BID Qty: 0 RF: 0 cholecalciferol (vitamin D3) [Vitamin D3] 1,000 UNIT tablet 1,000 unit PO QDAY Qty: 0 RF: 0 polyethylene glycol 3350 [Miralax] 119 GM powder 17 gm PO QDAYP PRNQty: 0 RF: 0 gabapentin [Neurontin] 600 MG tablet 600 mg PO BID Qty: 180 RF: 3 memantine 10 MG tablet 10 mg PO BID Qty: 180 RF: 3 galantamine [Razadyne ER] 16 MG capsule,ext rel. pellets 24 hr 16 mg PO HS Qty: 90 RF: 2 Referrals: Chester Tatum MD [Primary Care Provider] -
--- NOTE | 2018-12-05 19:15 | ED_ITS ---
HPI - Altered Mental Status General Chief Complaint: Neuro Symptoms/Deficit Stated Complaint: Altered mental status Time Seen by Provider: 12/05/18 19:10 Source: EMS Mode of arrival: EMS Limitations: altered mental status History of Present Illness HPI narrative: Patient is an 78-year-old male. All of the HPI was provided by EMS. It was reported that last evening the patient received Seroquel for the 1st time. Is reported the patient also has a history of dementia. EMS reports from the patient's that his baseline is that he is able to walk and talk and take care of himself. EMS states that according to his he has been more tired throughout today. Apparently a spent most of the time in bed. EMS states that the walked into his room to tell him that dinner was ready. They stated that he walked out of his room dressed and then ?fell to his knees ?this is when the called 911. When they arrived the patient has been mostly unresponsive however he did respond slightly to noxious stimuli. His BG L was 80. Received 2 mg of Narcan by EMS without any improvement. Patient is maintaining his airway. Related Data Home Medications Medication Instructions Recorded Confirmed aspirin 81 mg PO BID #0 02/09/11 01/13/18 rosuvastatin [Crestor] 40 mg PO HS #0 02/09/11 01/13/18 cholecalciferol (vitamin D3) 1,000 unit PO QDAY #0 02/26/12 01/13/18 [Vitamin D3] polyethylene glycol 3350 [Miralax] 17 gm PO QDAYP PRN #0 12/21/16 01/13/18 Previous Rx's Medication Instructions Recorded gabapentin [Neurontin] 600 mg PO BID #180 tab 09/17/17 galantamine [Razadyne ER] 16 mg PO HS #90 cap 09/17/17 memantine 10 mg PO BID #180 tab 09/17/17 Allergies Allergy/AdvReac Type Severity Reaction Status Date / Time Penicillins [PENICILLINS] Allergy Severe SWELLING Unverified 10/09/17 11:57 IN THROAT, AXILLA, GROIN Review of Systems Review of Systems ROS Unobtainable: Unobtainable due to mental condition Exam Initial Vital Signs Initial Vital Signs: Vital Signs Temperature 98.0 F 12/05/18 19:05 Pulse Rate 98 H 12/05/18 19:05 Respiratory Rate 11 L 12/05/18 19:05 Blood Pressure 166/65 H 12/05/18 19:05 Pulse Oximetry 99 12/05/18 19:05 Const General: comfortable, well developed and well groomed Nutritional Appearance: average body habitus Orientation: obtunded Limitations: altered mental status [facility] Head: normal to inspection and normocephalic Nose: external nose normal Mouth: oral mucosae normal Eyes Other: Pupils 3 mm equal reactive bilaterally however somewhat sluggish Chest Chest: normal inspection of the chest Resp Effort & Inspection: normal respiratory effort Auscultation: clear to auscultation bilaterally Cardio Rate: regular rate Rhythm: regular rhythm Pulses: radial pulses present GI Inspection: non-distended Palpation: soft and No firm Skin Other: Well-healed midline anterior chest surgical scar. Otherwise no other lesions noted Neuro Other: Patient only responsive to noxious stimuli. He did withdrawal to pain stimuli to his right upper extremity. Did not move with stimuli to his left upper extremity. Has an upgoing Babinski's bilateral lower extremities. Did not move any of his extremities to command. Does not follow any commands. Extrem General: capillary refill normal Other: No gross deformities Psych Appearance: grossly normal and well kempt Scores GCS [place] coma scale eye opening: None Shayy coma scale verbal response: None Shayy coma scale motor response: Normal flexion [place] coma scale total score: 6 Course Orders Ordered: ED Orders 12/05/18 19:00 Complete Blood Count AUTO DIFF Stat Comprehensive Metabolic Panel Stat Ethanol (ETOH) Stat Lipase Stat Partial Thromboplastin Time Stat Prothrombin Time INR Stat Thyroid Stimulating Hormone Stat Troponin I Stat 12/05/18 19:17 CT head/brain wo con Stat XR chest 1V Stat 12/05/18 19:18 EKG-12 Lead Stat 12/05/18 19:41 CT angio head and neck Stat 12/05/18 20:00 Ammonia (NH3) Stat 12/05/18 20:30 Urine Drug Screen, Rapid Stat Discontinued Medications Sodium Chloride (Normal Saline 0.9%) 1,000 mls @ 1,000 mls/hr IV BOLUS ONE Stop: 12/05/18 20:15 Last Infusion: 12/05/18 21:35 Dose: 1,000 mls/hr Admin: 12/05/18 20:00 Dose: 1,000 mls/hr Vital Signs - 8 hr 12/05/18 19:05 12/05/18 20:16 12/05/18 21:59 Temperature 98.0 F Pulse Rate 98 H 56 L 62 Respiratory Rate 11 L 13 15 Blood Pressure 166/65 H 146/60 H Blood Pressure [Left Arm] 160/63 H Pulse Oximetry 99 97 100 MDM - Altered Mental Status Lab Data Attestation: I reviewed the patient's lab results. Result diagrams: 12/05/18 19:00 12/05/18 19:00 Lab Results 12/05/18 12/05/18 12/05/18 Range/Units 19:00 19:00 19:00 WBC 5.3 (4.5-11.0) X10^3/uL RBC 4.21 L (4.5-5.9) X10^6/uL Hgb 13.7 (13.5-17.5) g/dL Hct 40.6 L (41-53) % MCV 96.4 (80-100) fL MCH 32.7 (26-34) PG MCHC 33.9 (30-36) % RDW 13.8 (11.6-14.8) % Plt Count 132 L (150-400) X10^3/uL Neut % (Auto) 57.6 (50-75) % Lymph % (Auto) 27.1 (25-40) % Cocke % (Auto) 11.6 (3-14) % Eos % (Auto) 3.2 (2-4) % Baso % (Auto) 0.5 (0-2) % Neut # (Auto) 3100 (4054-6908) /uL Lymph # (Auto) 1400 (3447-2522) /uL [place] # (Auto) 600 (0-900) /uL Eos # (Auto) 200 (0-450) /uL Baso # (Auto) 0 (0-100) /uL PT 11.8 (10.1-12.7) SECONDS INR 1.0 (0.9-1.3) APTT 28 (26.4-36.2) SECONDS Sodium 140 (137-145) mmol/L Potassium 3.9 (3.4-5.1) mmol/L Chloride 105 (98-107) mmol/L Carbon Dioxide 31 (22-32) mmol/L BUN 15 (9-20) mg/dL Creatinine 0.90 (0.66-1.25) mg/dL Estimated GFR > 60.0 (>60) mL/min BUN/Creatinine Ratio 16.7 (6-22) Glucose 92 (80-110) mg/dL Calcium 10.4 H (8.4-10.2) mg/dL Total Bilirubin 0.6 (0.2-1.3) mg/dL AST 41 (17-59) IU/L ALT 28 (21-72) IU/L Alkaline Phosphatase 65 (38-126) U/L Ammonia (9-30) umol/L Troponin I < 0.012 (0.01-0.034) ng/mL Total Protein 6.2 L (6.3-8.2) g/dL Albumin 3.8 (3.5-5.0) g/dL Globulin 2.4 (1.7-4.1) g/dL Albumin/Globulin Ratio 1.6 (1.0-2.8) Lipase 70 (23-300) U/L TSH (0.47-4.68) uIU/mL Urine Opiates Screen (Negative) Ur Oxycodone Screen (Negative) Urine Methadone Screen (Negative) Ur Barbiturates Screen (Negative) U Tricyclic Antidepress (Negative) Ur Phencyclidine Scrn (Negative) Ur Amphetamines Screen (Negative) U Methamphetamines Scrn (Negative) Ur MDMA Scrn (Ecstasy) (Negative) U Benzodiazepines Scrn (Negative) Urine Cocaine Screen (Negative) U Marijuana (THC) Screen (Negative) Ethyl Alcohol < 10 mg/dL 12/05/18 12/05/18 12/05/18 Range/Units 19:00 20:00 20:30 WBC (4.5-11.0) X10^3/uL RBC (4.5-5.9) X10^6/uL Hgb (13.5-17.5) g/dL Hct (41-53) % MCV (80-100) fL MCH (26-34) PG MCHC (30-36) % RDW (11.6-14.8) % Plt Count (150-400) X10^3/uL Neut % (Auto) (50-75) % Lymph % (Auto) (25-40) % [place]ke % (Auto) (3-14) % Eos % (Auto) (2-4) % Baso % (Auto) (0-2) % Neut # (Auto) (3438-1382) /uL Lymph # (Auto) (9405-1296) /uL [place]ke # (Auto) (0-900) /uL Eos # (Auto) (0-450) /uL Baso # (Auto) (0-100) /uL PT (10.1-12.7) SECONDS INR (0.9-1.3) APTT (26.4-36.2) SECONDS Sodium (137-145) mmol/L Potassium (3.4-5.1) mmol/L Chloride (98-107) mmol/L Carbon Dioxide (22-32) mmol/L BUN (9-20) mg/dL Creatinine (0.66-1.25) mg/dL Estimated GFR (>60) mL/min BUN/Creatinine Ratio (6-22) Glucose (80-110) mg/dL Calcium (8.4-10.2) mg/dL Total Bilirubin (0.2-1.3) mg/dL AST (17-59) IU/L ALT (21-72) IU/L Alkaline Phosphatase (38-126) U/L Ammonia 10.0 (9-30) umol/L Troponin I (0.01-0.034) ng/mL Total Protein (6.3-8.2) g/dL Albumin (3.5-5.0) g/dL Globulin (1.7-4.1) g/dL Albumin/Globulin Ratio (1.0-2.8) Lipase (23-300) U/L TSH 2.38 (0.47-4.68) uIU/mL Urine Opiates Screen Negative (Negative) Ur Oxycodone Screen Negative (Negative) Urine Methadone Screen Negative (Negative) Ur Barbiturates Screen Negative (Negative) U Tricyclic Antidepress Negative (Negative) Ur Phencyclidine Scrn Negative (Negative) Ur Amphetamines Screen Negative (Negative) U Methamphetamines Scrn Negative (Negative) Ur MDMA Scrn (Ecstasy) Negative (Negative) U Benzodiazepines Scrn Negative (Negative) Urine Cocaine Screen Negative (Negative) U Marijuana (THC) Screen Negative (Negative) Ethyl Alcohol mg/dL Point of Care Testing Glucose POC [address] scan - head: Radiologist's impression: [address] [address] [address] Scan Report Signed Patient: Kyle Jones FMR#: [id number] : 8Acct:[id number] Age/Sex: 78 / MDate of Service: 12/05/18 Loc: ED Accession Number: [id number] Procedure: CT head/brain wo con Ordering Provider: Chester Montes D.O. PROCEDURE: CT HEAD/BRAIN WO CON INDICATIONS: Code stroke TECHNIQUE: Noncontrast 4.5 mm thick angled axial sections acquired from the foramen magnum to the vertex, with coronal and sagittal reformats. For radiation dose reduction, the following was used: automated exposure control, adjustment of mA and/or kV according to patient size. COMPARISON: [facility], CT, CT HEAD/BRAIN WO CON, 11/21/2018, 19:24. FINDINGS: Image quality: Excellent. CSF spaces: Basal cisterns are patent. No extra-axial fluid collections. The ventricles are symmetric in size and shape. Brain: No intracranial bleeds or masses. There is moderate cerebral volume loss for age, with resultant ventricular and sulcal prominence. There are moderate periventricular and deep white matter chronic small vessel ischemic changes. There is intracranial internal carotid artery atherosclerosis. Skull and face: Calvarium and visualized facial bones appear intact, without suspicious lesions. Sinuses: Visualized sinuses and mastoids are clear. IMPRESSION: 1. No acute intracranial abnormalities. 2. Cerebral volume loss and chronic microvascular ischemic changes. The result was discussed with Dr. Montes on 12/05/2018 at 1942 hours. Dictated by: Brody Ryan M.D. on 12/05/2018 at 19:41 Approved by: Brody Ryan M.D. on 12/05/2018 at 19:4 Chest x-ray: Radiologist's impression: [address] [address] XRay Report Signed Patient: Kyle Jones FMR#: [id number] : 8Acct:[id number] Age/Sex: 78 / MDate of Service: 12/05/18 Loc: ED Accession Number: [id number] Procedure: XR chest 1V Ordering Provider: Chester Montes D.O. PROCEDURE: XR CHEST 1V INDICATIONS: Code stroke TECHNIQUE: One view of the chest was acquired. COMPARISON: [facility], CR, CHEST 1 VIEW, 06/10/2017, 9:47. FINDINGS: Surgical changes and devices: Sternotomy and CABG. Lungs and pleura: Lungs are clear. No pleural effusions or pneumothorax. Mediastinum: Mediastinal contours appear normal. Heart size is normal. Bones and chest wall: No suspicious bony lesions. Overlying soft tissues appear unremarkable. IMPRESSION: No acute cardiopulmonary disease. Dictated by: Brody Ryan M.D. on 12/05/2018 at 20:38 Approved by: Brody Ryan M.D. on 12/05/2018 at 20:39 CTA head and neck: Radiologist's impression: [place] [address] CT Scan Report Signed Patient: Kyle Jones FMR#: [id number] : 8Acct:[id number] Age/Sex: 78 / MDate of Service: 12/05/18 Loc: ED Accession Number: [id number] Procedure: CT angio head and neck Ordering Provider: Chester Montes D.O. PROCEDURE: CT ANGIO HEAD AND NECK INDICATIONS: Possible stroke TECHNIQUE: Pre-contrast 4.5 mm thick sections acquired from the foramen magnum to the vertex. After the administration of intravenous contrast, 1 mm thick sections acquired from the aortic arch through the [place]. Post-contrast 4.5 mm thick sections then re- acquired from the foramen magnum to the vertex. 3-dimensional nbrwwjy-mlzrrjycu-pkeobtdedo (MIP) and/or volume rendering reformats were acquired of the central intracranial vasculature and neck separately. COMPARISON: [facility], CT, CT ANGIO HEAD AND NECK, 11/21/2018, 19:26. FINDINGS: Image quality: Excellent. BRAIN: CSF spaces: Ventricles are normal in size and shape. Basal cisterns are patent. No extra-axial fluid collections. Brain: There is moderate cerebral volume loss. Moderate periventricular white matter chronic small vessel ischemic changes are present. No midline shift. No intracranial bleeds or masses. Lopez-white matter interface appears intact. Skull and face: Calvarium and facial bones appear intact, without suspicious lesions. Orbits appear normal. Sinuses: Sinuses and mastoids are clear. HEAD CT ANGIOGRAPHY: Anterior circulation: Intracranial internal carotid arteries are normal in size and flow. The flow within the paired anterior cerebral arteries is normal and symmetric. The flow within the middle cerebral arteries is normal and symmetric. The a nterior communicating artery is seen. No aneurysms are seen. Posterior circulation: Visualized portions of the vertebral arteries demonstrate normal caliber, and join to form a normal appearing basilar artery. Flow within the posterior cerebral arteries is normal and symmetric. No aneurysms are seen. NECK CT ANGIOGRAPHY: Carotid system: The great vessels demonstrate a conventional anatomy as they arise from the aortic arch. The origins of the common carotid arteries appear patent. The common carotid arteries demonstrate normal caliber and courses. The bifurcation regions are both widely patent. The internal carotid arteries demonstrate normal calibers and courses. Posterior circulation: The origins of the vertebral arteries both appear widely patent. The more superior extracranial portions of both vertebral arteries also demonstrate normal courses and calibers. They join to form a normal appearing basilar artery. Soft tissues: Visualized neck soft tissues demonstrate no suspicious abnormalities. There is an aortic valve prosthesis. Bones: Scoliosis and degenerative changes in cervical spine. There is a sternotomy. No suspicious bony lesions. Visualized cervical spine appears normally aligned. IMPRESSION: 1. No acute intracranial abnormalities. 2. No high-grade stenosis or occlusion in anterior circulations. 3. No high-grade stenosis or occlusion in posterior circulations. 4. No high-grade stenoses or occlusion of the cervical carotid arteries bilaterally. 5. No high-grade stenoses or occlusion in cervical vertebral arteries bilaterally. Any quantitative measurements of stenosis were performed using NASCET criteria. Dictated by: Brody Ryan M.D. on 12/05/2018 at 21:10 Approved by: Brody Ryan M.D. on 12/05/2018 at 21:18 ECG Data Attestation: I personally reviewed and interpreted this ECG as follows: Prior ECG tracings: not available for review Interpretation: Sinus bradycardia Ventricular rate of 53 LVH Normal axis No ST T wave changes MDM Narrative Medical decision making narrative: Patient's workup here in the emergency department was negative for stroke. His did arrive and I did spend some time talking with her. During his observation here in the emergency department while we are waiting for his CTA to results patient regained consciousness. He eventually was back to ?normal? per his . No signs of other trauma. Did discuss the case with Dr. Tatum who is his primary provider. Dr. Tatum did agree to admit the patient however there was concern about placing the patient i n a unfamiliar environment overnight. I did discuss this with the patient's who agreed that this would probably not be the best course of action. She was okay with taking the patient home. I do suspect that his symptoms were the result of the Seroquel he took last evening with his underlying dementia and other medical issues. Low suspicion for CVA or TIA. Hold on further workup for now. The patient's was given strict return precautions. She expressed understanding and agreement with plan. Discharge Plan Departure Patient Disposition: Home Clinical Impression: Altered mental status Qualifiers: Altered mental status type: unspecified Qualified Code(s): R41.82 - Altered mental status, unspecified Medication reaction Qualifiers: Encounter type: initial encounter Qualified Code(s): T50.905A - Adverse effect of unspecified drugs, medicaments and biological substances, initial encounter Discharge Date/Time: 12/05/18 21:59 Interventions: ED Discharge Assessment Last Done: 12/05/18 21:59 Instructions: DI for Altered Mental Status Activity Restrictions/Additional Instructions: Recommend that you stop the Seroquel. He can take the rest of his medications as directed. He can eat and sleep like normal. On Saturday contact Dr. Tatum for a follow-up. Return to the emergency department for any new or worsening symptoms Prescriptions: No Action rosuvastatin [Crestor] 40 MG tablet 40 mg PO HS Qty: 0 RF: 0 aspirin 81 MG tablet,delayed release (DR/EC) 81 mg PO BID Qty: 0 RF: 0 cholecalciferol (vitamin D3) [Vitamin D3] 1,000 UNIT tablet 1,000 unit PO QDAY Qty: 0 RF: 0 polyethylene glycol 3350 [Miralax] 119 GM powder 17 gm PO QDAYP PRNQty: 0 RF: 0 gabapentin [Neurontin] 600 MG tablet 600 mg PO BID Qty: 180 RF: 3 memantine 10 MG tablet 10 mg PO BID Qty: 180 RF: 3 galantamine [Razadyne ER] 16 MG capsule,ext rel. pellets 24 hr 16 mg PO HS Qty: 90 RF: 2 Referrals: Chester Tatum MD [Primary Care Provider] -
[2018-12-05 19:24] LABS: Add Manual Diff / Slide Review NO; Basophils Absolute Auto 0 /uL (0-100); Basophils Percent Auto 0.5 % (0-2); Eosinophils Absolute Auto 200 /uL (0-450); Eosinophils Percent Auto 3.2 % (2-4); Hematocrit 40.6 % (41-53); Hemoglobin 13.7 g/dL (13.5-17.5); Lymphocytes Absolute Auto 1400 /uL (1100-4500); Lymphocytes Percent Auto 27.1 % (25-40); Mean Corpuscular HGB Conc 33.9 % (30-36); Mean Corpuscular Hemoglobin 32.7 PG (26-34); Mean Corpuscular Volume 96.4 fL (80-100); Monocytes Absolute Auto 600 /uL (0-900); Monocytes Percent Auto 11.6 % (3-14); Neutrophils Absolute Auto 3100 /uL (1500-7000); Neutrophils Percent Auto 57.6 % (50-75); Platelet Count 132 X10^3/uL (150-400); Red Blood Cell Count 4.21 X10^6/uL (4.5-5.9); Red Cell Distribution Width 13.8 % (11.6-14.8); White Blood Cell Count 5.3 X10^3/uL (4.5-11.0)
[2018-12-05 19:30] VITALS: BP 164/62; PULSE 59; RESP 16; O2SAT 97
[2018-12-05 19:30] LABS: Prothrombin Time 11.8 SECONDS (10.1-12.7)
--- NOTE | 2018-12-05 19:30 | PC.NURSE ---
Patient arrived via EMS, EMS reports pt states pt was walking in his house then fell to his knees and she called 911. PT has hx of dementia and was recently prescribed Seroquel, he took first dose at 10pm yesterday. states he had been more tired today than usual and in bed longer today which is not his baseline as he usually ambulates independently and is able to perform self care with minimal assistance. EMS reports pt was mostly unresponsive upon arrival yet responded slightly to noxious stimuli. Pt received 2mg Narcan from EMS with no improvement. Pt maintaining airway independently.
[2018-12-05 19:33] LABS: PTT Partial Thromboplastin Tim 28 SECONDS (26.4-36.2)
[2018-12-05 19:39] LABS: Alanine Aminotransferase 28 IU/L (21-72); Albumin 3.8 g/dL (3.5-5.0); Albumin Globulin Ratio 1.6 (1.0-2.8); Alkaline Phosphatase 65 U/L (38-126); Aspartate Aminotransferase 41 IU/L (17-59); BUN Creatinine Ratio 16.7 (6-22); Bilirubin Total 0.6 mg/dL (0.2-1.3); Blood Urea Nitrogen 15 mg/dL (9-20); Calcium 10.4 mg/dL (8.4-10.2); Carbon Dioxide 31 mmol/L (22-32); Chloride 105 mmol/L (98-107); Estimated Glomerular Filt Rate > 60.0 mL/min (>60); Ethanol (ETOH) < 10 mg/dL; Globulin 2.4 g/dL (1.7-4.1); Glucose 92 mg/dL (80-110); HEMOLYSIS 22 (0-50); Lipase 70 U/L (23-300); Potassium 3.9 mmol/L (3.4-5.1); Sodium 140 mmol/L (137-145); Total Protein 6.2 g/dL (6.3-8.2)
--- NOTE | 2018-12-05 19:41 | DI.CT.S_ITS ---
PROCEDURE: CT ANGIO HEAD AND NECK INDICATIONS: Possible stroke TECHNIQUE: Pre-contrast 4.5 mm thick sections acquired from the foramen magnum to the vertex. After the administration of intravenous contrast, 1 mm thick sections acquired from the aortic arch through the [place]. Post-contrast 4.5 mm thick sections then re-acquired from the foramen magnum to the vertex. 3-dimensional uamsqqu-gblvpzmvs-xjjxpvkjoe (MIP) and/or volume rendering reformats were acquired of the central intracranial vasculature and neck separately. COMPARISON: [facility], CT, CT ANGIO HEAD AND NECK, 11/21/2018, 19:26. FINDINGS: Image quality: Excellent. BRAIN: CSF spaces: Ventricles are normal in size and shape. Basal cisterns are patent. No extra-axial fluid collections. Brain: There is moderate cerebral volume loss. Moderate periventricular white matter chronic small vessel ischemic changes are present. No midline shift. No intracranial bleeds or masses. Lopez-white matter interface appears intact. Skull and face: Calvarium and facial bones appear intact, without suspicious lesions. Orbits appear normal. Sinuses: Sinuses and mastoids are clear. HEAD CT ANGIOGRAPHY: Anterior circulation: Intracranial internal carotid arteries are normal in size and flow. The flow within the paired anterior cerebral arteries is normal and symmetric. The flow within the middle cerebral arteries is normal and symmetric. The anterior communicating artery is seen. No aneurysms are seen. Posterior circulation: Visualized portions of the vertebral arteries demonstrate normal caliber, and join to form a normal appearing basilar artery. Flow within the posterior cerebral arteries is normal and symmetric. No aneurysms are seen. NECK CT ANGIOGRAPHY: Carotid system: The great vessels demonstrate a conventional anatomy as they arise from the aortic arch. The origins of the common carotid arteries appear patent. The common carotid arteries demonstrate normal caliber and courses. The bifurcation regions are both widely patent. The internal carotid arteries demonstrate normal calibers and courses. Posterior circulation: The origins of the vertebral arteries both appear widely patent. The more superior extracranial portions of both vertebral arteries also demonstrate normal courses and calibers. They join to form a normal appearing basilar artery. Soft tissues: Visualized neck soft tissues demonstrate no suspicious abnormalities. There is an aortic valve prosthesis. Bones: Scoliosis and degenerative changes in cervical spine. There is a sternotomy. No suspicious bony lesions. Visualized cervical spine appears normally aligned. IMPRESSION: 1. No acute intracranial abnormalities. 2. No high-grade stenosis or occlusion in anterior circulations. 3. No high-grade stenosis or occlusion in posterior circulations. 4. No high-grade stenoses or occlusion of the cervical carotid arteries bilaterally. 5. No high-grade stenoses or occlusion in cervical vertebral arteries bilaterally. Any quantitative measurements of stenosis were performed using NASCET criteria. Dictated by: Brody Ryan M.D. on 12/05/2018 at 21:10 Approved by: Brody Ryan M.D. on 12/05/2018 at 21:18
[2018-12-05 19:50] LABS: Troponin I < 0.012 ng/mL (0.01-0.034)
--- NOTE | 2018-12-05 19:52 | PC.NURSE ---
arrived at bedside speaking with Dr. Montes in room and updated on plan of care.
[2018-12-05] MEDS: SODIUM CHLORIDE 0.9% 1,000 ML 1000 ML IV (20:00)
[2018-12-05 20:12] LABS: Thyroid Stimulating Hormone 2.38 uIU/mL (0.47-4.68)
[2018-12-05 20:16] VITALS: BP 160/63; PULSE 56; RESP 13; O2SAT 97
--- NOTE | 2018-12-05 20:43 | PC.NURSE ---
PT alert in room, a&O to self, able to identify in room by name, states he is acting more like his baseline. Pt moving all extremities, able to independently transfer to sit on bedside to use urinal with RN and at side. PT had 350ml urine output.
[2018-12-05 20:52] LABS: Urine Amphetamines Negative (Negative); Urine Barbiturates Negative (Negative); Urine Benzodiazepines Negative (Negative); Urine Cocaine Negative (Negative); Urine MDMA Negative (Negative); Urine Methadone Negative (Negative); Urine Methamphetamines Negative (Negative); Urine Morphine/Opi cutoff 2000 Negative (Negative); Urine Oxycodone Negative (Negative); Urine Phencyclidine Negative (Negative); Urine Tetrahydrocannabinol Negative (Negative); Urine Tricyclic Antidepressant Negative (Negative)
[2018-12-05 21:00] VITALS: BP 148/62; PULSE 61; RESP 16; O2SAT 98
[2018-12-05 21:30] VITALS: BP 146/61; PULSE 62; RESP 15; O2SAT 99
[2018-12-05 21:59] VITALS: BP 146/60; PULSE 62; RESP 15; O2SAT 100
== END 2018-12-05 21:59 | disposition home or self-care (01) ==
PROVIDERS: Emergency Provider Emergency Medicine; Family Provider Family Medicine; PCP Family Medicine
DX: R41.82 Altered mental status, unspecified (principal); T50.905A Adverse effect of unspecified drugs, medicaments and biological substances, initial encounter; W18.30XA Fall on same level, unspecified, initial encounter; Z95.1 Presence of aortocoronary bypass graft
CPT/HCPCS: 36415; 70450; 70496; 70498; 71045; 80053; 80305; 80320; 82140; 82962; 83690; 84443; 84484; 85025; 85610; 85730; 93005; 96360; 96361; 99283; 99291; 99292; Q9967

== ENCOUNTER 2019-05-06 09:04 | Emergency (ER) | payer MEDICARE, OTHER, SELFPAY ==
[2019-05-06 09:10] VITALS: PULSE 55; RESP 16; TEMP 36.6; O2SAT 99; BMI 24.7
[2019-05-06 09:11] VITALS: BP 132/67; PULSE 54; RESP 14; TEMP 36.6; O2SAT 99
--- NOTE | 2019-05-06 09:13 | DI.RAD.S_ITS ---
PROCEDURE: XR HAND RT MIN 3V INDICATIONS: injury TECHNIQUE: 3 views of the hand(s) acquired. COMPARISON: [facility], , HAND 3V RIGHT, 05/12/2008, 13:32. FINDINGS: Bones: No fractures or dislocations. Carpal bones are normally aligned. No suspicious bony lesions. Degenerative arthritis involving the first MCP, first PIP, and second through fifth DIPs. Soft tissues: No suspicious soft tissue calcifications. IMPRESSION: No evidence acute bony abnormality of the right hand. Degenerative arthritis. Dictated by: Jose Maria Hagen M.D. on 05/06/2019 at 10:05 Approved by: Jose Maria Hagen M.D. on 05/06/2019 at 10:06
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
--- NOTE | 2019-05-06 09:26 | ED.UPPEXIN ---
HPI - Extremity Injury (Upper) General Chief Complaint: Extremity Injury, Upper Stated Complaint: hit right hand Time Seen by Provider: 05/06/19 09:18 Source: patient and family Mode of arrival: Ambulatory Limitations: other (dementia) History of Present Illness HPI narrative: This is an 79-year-old male who is brought to the emergency department for concern for injury to his right hand. Patient's states they are in the process of switching from 1 care facility to a new 1. She has been moving his clothes he has dementia with some behavioral issues in a lot of paranoia and thought that she was abandoning him and got frustrated and punched a wall yesterday. Patient typically is stoic according to his and will not tell anyone when he has pain. She states he had quite a bit of swelling yesterday it does appear improved today. She has not appreciated any cuts or other injuries. She states his dementia is fairly progressed and he is not able to give much history. Related Data Home Medications Medication Instructions Recorded Confirmed aspirin 81 mg PO BID #0 02/09/11 01/13/18 rosuvastatin [Crestor] 40 mg PO HS #0 02/09/11 01/13/18 cholecalciferol (vitamin D3) 1,000 unit PO QDAY #0 02/26/12 01/13/18 [Vitamin D3] polyethylene glycol 3350 [Miralax] 17 gm PO QDAYP PRN #0 12/21/16 01/13/18 Previous Rx's Medication Instructions Recorded gabapentin [Neurontin] 600 mg PO BID #180 tab 09/17/17 galantamine [Razadyne ER] 16 mg PO HS #90 cap 09/17/17 memantine 10 mg PO BID #180 tab 09/17/17 Allergies Allergy/AdvReac Type Severity Reaction Status Date / Time Penicillins [PENICILLINS] Allergy Severe SWELLING Verified 05/06/19 09:10 IN THROAT, AXILLA, GROIN quetiapine [From Seroquel] Allergy Verified 05/06/19 09:10 Review of Systems Review of Systems ROS Unobtainable: Unobtainable due to mental status/LOC Patient History Medical History Dementia (Acute) Social History (Updated 05/06/19 @ 09:27 by Naima Bryant DO) marital status: Smoking Status: Never smoker Exam Narrative Exam Narrative: GENERAL: Alert male, patient denies pain but does not answer the majority of questions. HEENT: Head normocephalic, atraumatic, EOMI, pupils reactive, face symmetric, moist mucous membranes NECK: Supple, full range of motion CARDIOVASCULAR: Regular rate and rhythm without murmurs, rubs or gallops. RESPIRATORY: Breath sounds equal bilaterally, no wheezes rales or rhonchi. ABDOMEN: Soft, nontender. Normoactive bowel sounds all 4 quadrants. No guarding or rebound, rigidity, no mass EXTREMITIES: Normal range of motion, no clubbing. Patient does not have any bony tenderness with palpation, he has full range of motion with flexion extension of his fingers. His distal 5th finger does have some slight deformity although states that may be from before. There is swelling over the dorsum of the hand but no significant ecchymosis. there is no swelling of the palmar portion. No warmth. No erythema, cyanosis or pallor. Neurovascularly intact. NEUROLOGICAL: Cranial nerves II through XII grossly intact. Moving all extremities SKIN: Warm, dry, no petechiae, no rashes or lesions. Initial Vital Signs Initial Vital Signs: Vital Signs Temperature 97.9 F 05/06/19 09:10 Pulse Rate 55 L 05/06/19 09:10 Respiratory Rate 16 05/06/19 09:10 Pulse Oximetry 99 05/06/19 09:10 Course Orders Ordered: ED Orders 05/06/19 09:13 XR hand RT min 3V Stat Vital Signs Vital signs: Vital Signs - 8 hr 05/06/19 10:03 Pulse Rate 59 L Respiratory Rate 16 Blood Pressure [Right Arm] 128/57 L Pulse Oximetry 98 MDM - Extremity Injury (Upper) Imaging Data hand xray: Radiologist's impression: [address] [address] XRay Report Signed Patient: Kyle Jones FMR#: [id number] : 8Acct:[id number] Age/Sex: 79 / MDate of Service: 05/06/19 Loc: ED Accession Number: [id number] Procedure: XR hand RT min 3V Ordering Provider: Naima Bryant D.O. PROCEDURE: XR HAND RT MIN 3V INDICATIONS: injury TECHNIQUE: 3 views of the hand(s) acquired. COMPARISON: [facility], , HAND 3V RIGHT, 05/12/2008, 13:32. FINDINGS: Bones: No fractures or dislocations. Carpal bones are normally aligned. No suspicious bony lesions. Degenerative arthritis involving the first MCP, first PIP, and second through fifth DIPs. Soft tissues: No suspicious soft tissue calcifications. IMPRESSION: No evidence acute bony abnormality of the right hand. Degenerative arthritis. Dictated by: Jose Maria Hagen M.D. on 05/06/2019 at 10:05 Approved by: Jose Maria Hagen M.D. on 05/06/2019 at 10:06 Discharge Plan Departure Patient Disposition: Home Clinical Impression: Contusion of hand, right Qualifiers: Encounter type: initial encounter Qualified Code(s): S60.221A - Contusion of right hand, initial encounter Discharge Date/Time: 05/06/19 10:38 Instructions: DI for Contusion Activity Restrictions/Additional Instructions: Follow-up with primary care the next 7-10 days for recheck if pain or swelling has not resolved as patient might need repeat imaging in 7-10 days. Patient may have Tylenol up to a 1000 mg every 8 hours as needed for pain. Return to the emergency department if new or worsening symptoms, new weakness, numbness, rapidly increasing bruising, or other new or concerning symptoms. Prescriptions: No Action rosuvastatin [Crestor] 40 MG tablet 40 mg PO HS Qty: 0 RF: 0 aspirin 81 MG tablet,delayed release (DR/EC) 81 mg PO BID Qty: 0 RF: 0 cholecalciferol (vitamin D3) [Vitamin D3] 1,000 UNIT tablet 1,000 unit PO QDAY Qty: 0 RF: 0 polyethylene glycol 3350 [Miralax] 119 GM powder 17 gm PO QDAYP PRNQty: 0 RF: 0 gabapentin [Neurontin] 600 MG tablet 600 mg PO BID Qty: 180 RF: 3 memantine 10 MG tablet 10 mg PO BID Qty: 180 RF: 3 galantamine [Razadyne ER] 16 MG capsule,ext rel. pellets 24 hr 16 mg PO HS Qty: 90 RF: 2 Referrals: Chester Tatum MD [Primary Care Provider] -
[2019-05-06 10:03] VITALS: BP 128/57; PULSE 59; RESP 16; O2SAT 98
== END 2019-05-06 10:38 | disposition home or self-care (01) ==
PROVIDERS: Emergency Provider Emergency Medicine; Family Provider Family Medicine; PCP Family Medicine
DX: S60.221A Contusion of right hand, initial encounter (principal); S69.91XA Unspecified injury of right wrist, hand and finger(s), initial encounter; W22.8XXA Striking against or struck by other objects, initial encounter
CPT/HCPCS: 73130; 99282; 99283